=== PATIENT | female | born 1955 | race Caucasian/White ===

== ENCOUNTER 2017-05-16 12:52 | Outpatient (CLI) | payer BC ==
[2017-05-16 14:45] LABS: #Eosinphils 0.2 thou/uL (0.0-0.7); #Lymphocytes 1.8 thou/uL (1.20-3.40); #Monocytes 0.4 thou/uL (0.11-0.59); #Neutrophils 3.1 thou/uL (1.40-6.50); %Basophils 0.8 % (0.0-1.0); %Eosinophils 3.7 % (0.0-10.0); %Lymphocytes 33.4 % (21.0-51.0); %Monocytes 6.6 % (0.0-10.0); Mean Platelet Volume 7.4 fL (7.4-10.4); Red Blood Cell (RBC) Count 4.12 mill/uL (4.20-5.40); White Blood Cell (WBC) Count 5.5 thou/uL (4.8-10.8)
[2017-05-16 15:08] LABS: Anion Gap 9 mmol/L (10-20); BUN (Urea Nitrogen) 12 mg/dL (9.8-20.1); Calc. Creatinine Clearance 0 mL/min (70-130); Calcium 9.6 mg/dL (7.8-10.44); Carbon Dioxide 30 mmol/L (23-31); Chloride 104 mmol/L (98-107); Estimated GFR-MDRD 64
== END 2017-05-16 12:53 | disposition home or self-care (01) ==
LOC: LABBT 12:52
PROVIDERS: ATTEND Orthopaedic Surgery
DX: Z01.818 Encounter for other preprocedural examination (principal); M75.102 Unspecified rotator cuff tear or rupture of left shoulder, not specified as traumatic
CPT/HCPCS: 80048; 85025; 93005; 93010

== ENCOUNTER 2017-05-20 06:55 | Day surgery (SDC) | payer BC ==
[2017-05-16 13:20] VITALS: BMI 22.1
[2017-05-20] MEDS ORDERED: Levofloxacin 500 mg/D5W 100 ml Premix Bag ONE (07:33)
[2017-05-20] MEDS ORDERED: Clindamycin/D5W 900 mg/50 ml Premix Bag ONE (07:33)
[2017-05-20] MEDS ORDERED: Fentanyl 100 MCG/2 ML VIAL ONE ×2 (07:38→12:29)
[2017-05-20] MEDS ORDERED: Ropivacaine 0.2% HCl/PF 20 ML ONE (07:38)
[2017-05-20] MEDS ORDERED: Midazolam HCl 2 mg/2 ml Vial ONE (07:38)
[2017-05-20] MEDS ORDERED: Zolpidem Tartrate 5 MG TAB PO PRN (08:53)
[2017-05-20] MEDS ORDERED: Ondansetron HCl/PF 4 MG/2 ML Vial IVP PRN (08:53)
[2017-05-20] MEDS ORDERED: traMADol HCl 50 MG TAB PO PRN ×2 (08:53)
[2017-05-20] MEDS ORDERED: HYDROcodone/Acetaminophen 10/325 mg Tablet PO PRN ×2 (08:53)
[2017-05-20] MEDS ORDERED: Fentanyl 100 MCG/2 ML VIAL IV PRN (08:53)
[2017-05-20] MEDS ORDERED: Ropivacaine 0.2% 550 ML 550 ML NERVE BLCK SCH (08:53)
[2017-05-20] MEDS ORDERED: Promethazine HCl 25 MG/ML VIAL IM PRN (08:53)
[2017-05-20] MEDS ORDERED: Ondansetron HCl/PF 4 MG/2 ML Vial ONE ×2 (10:00→10:26)
[2017-05-20] MEDS ORDERED: Scopolamine 1.5 mg/72 hour Patch ONE (10:02)
[2017-05-20] MEDS ORDERED: Lidocaine 1% PF 5 ML VIAL ONE (10:26)
[2017-05-20] MEDS ORDERED: Dexamethasone 20 MG/5 ML VIAL ONE (10:26)
[2017-05-20] MEDS ORDERED: Propofol 200 MG/20 ML VIAL ONE (10:26)
[2017-05-20] MEDS ORDERED: Glycopyrrolate 0.2 MG/ML 5 ML SYRINGE ONE (10:26)
[2017-05-20] MEDS ORDERED: Lidocaine 1% w/Epinephrine 1:200K 30 ML VIAL ONE (10:39)
[2017-05-20] MEDS ORDERED: Promethazine HCl 25 MG/ML VIAL ONE (12:05)
--- NOTE | 2017-05-20 13:45 | OP ---
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 PROCEDURES PERFORMED: 1. Left shoulder arthroscopy with debridement and shaving of partial left- sided bursal rotator cuff tear, which was at most 10%of the rotator cuff thickness. 2. Open biceps tenodesis. SURGEON: Santiago Schwab M.D. INDUSTRIAL CONTROLLER: Wilbert Carlton PA-C. BLOOD LOSS: Minimal. COMPLICATIONS: None. ANESTHESIA: She had general anesthetic as well as a local block. DISPOSITION: She did go to recovery in stable condition. IMPLANTS: Her only implant was 7 x 23 BioComposite Bio-Tenodesis screw. INDICATIONS: Ms. Garcias is a 61-year-old female who has failed nonoperative treatment for persistent left shoulder problems. She has had multiple injections and physical therapy and continued to have problems and at this time , she opted for surgery. DESCRIPTION OF PROCEDURE: After all appropriate consent forms were explained and signed, she was taken to the operating room and at this time was given general anesthetic. Once the level of anesthesia was appropriate, she was rolled into the right lateral decubitus position with all bony prominences well- padded. Axillary roll was placed underneath the right axilla and the hong bag was inflated to hold her in this position. The arm was taken through full range of motion and was not found to be tied at all. The arm was then suspended with 5 pounds only. The left shoulder and upper extremity were then prepped and draped in the standard surgical fashion. Bony anatomic landmarks were drawn out and subacromial space was infiltrated with lidocaine with epinephrine. Posterior portal was established and the scope was placed into the shoulder joint. Anterior working portal was then made using a needle localization technique. Diagnostic arthroscopy commenced. The articular surface of the humeral head and glenoid were in good condition. No loose bodies were noted in the axillary pouch. Labrum was found to be intact except for the superior labrum which was found to have a chronic tear and the superior labrum was also found to be diminutive in size in a chronic appearance. The rotator cuff had a pristine appearance from the joint surface. Subscapularis and middle glenohumeral ligament were also within normal limits. At this time, we used an [address] a stitch through the biceps tendon and this tendon was then cut off the superior labrum using arthroscopic scissors. Once this was done, the scope was removed and replaced into the subacromial space. Lateral working portal was made and at this time, the bursa was removed, so we could visualize the underlying rotator cuff. The underlying rotator cuff was scuffed over the supraspinatus and even back towards the infraspinatus, but upon probing, it was not found to have any significant tears and a scuffed area was just gently debrided with the shaver to help promote healing. Again, all bursa was removed. No bony decompression was performed nor was the CA ligament taken down. At this time, the scope was removed, shoulder was drained. We then went to perform our open biceps tenodesis. From where our stick was, a 15 blade was used to cut down through skin, and the Bovie was used to coagulate any brisk venous bleeding. The deltoid fascia was entered sharply and finger dissection was used to dissect down through the deltoid muscle fibers to get down to the underlying transverse humeral ligament. This was opened up and the biceps was pulled out into the wound. We then coagulated any brisk venous bleeding. We then sutured our biceps tendon, cut off the intraarticular portion of this, placed a pin, reamed over top with a 7 mm reamer to a depth of 25 and placed our 7 x 23 BioComposite Bio-Tenodesis screw in standard fashion. Sutures were tied over top of that, so that I could not back out and at this time, we thoroughly irrigated our wound. We dried it. We allowed our deltoid to fall upon itself. We used a running Vicryl to close the deltoid fascia, 2-0 Vicryl and nylon stitches to close skin in the portals. Bulky sterile dressing was applied. The patient was awakened and taken to recovery in stable condition. All counts were correct at the end of the case. She received preoperative IV antibiotics. HOLA
== END 2017-05-20 14:43 | disposition home or self-care (01) ==
LOC: SDC 06:55
PROVIDERS: ATTEND Orthopaedic Surgery
PROC: 0RHK04Z Insertion of Internal Fixation Device into Left Shoulder Joint, Open Approach (ICD-10-PCS; principal; 2017-05-20)
PROC: 0LS40ZZ Reposition Left Upper Arm Tendon, Open Approach (ICD-10-PCS; principal; 2017-05-20)
PROC: 0RBK4ZZ Excision of Left Shoulder Joint, Percutaneous Endoscopic Approach (ICD-10-PCS; principal; 2017-05-20)
DX: M75.112 Incomplete rotator cuff tear or rupture of left shoulder, not specified as traumatic (principal); S43.432A Superior glenoid labrum lesion of left shoulder, initial encounter; S46.112A Strain of muscle, fascia and tendon of long head of biceps, left arm, initial encounter; G47.00 Insomnia, unspecified; J30.9 Allergic rhinitis, unspecified; E03.9 Hypothyroidism, unspecified; F41.9 Anxiety disorder, unspecified; M85.80 Other specified disorders of bone density and structure, unspecified site; Z79.51 Long term (current) use of inhaled steroids; Z79.52 Long term (current) use of systemic steroids; Z79.899 Other long term (current) drug therapy; Z88.5 Allergy status to narcotic agent; Z88.0 Allergy status to penicillin; Z88.7 Allergy status to serum and vaccine; Z91.048 Other nonmedicinal substance allergy status; Z98.41 Cataract extraction status, right eye; Z90.89 Acquired absence of other organs; Z90.49 Acquired absence of other specified parts of digestive tract; Z98.890 Other specified postprocedural states; Z86.19 Personal history of other infectious and parasitic diseases; Z80.42 Family history of malignant neoplasm of prostate; Z82.62 Family history of osteoporosis
CPT/HCPCS: 96374; A4306; C1713; J1100; J1956; J2001; J2250; J2405; J2550; J2704; J2795; J3010; J3490

== ENCOUNTER 2018-01-22 08:54 | Outpatient (CLI) | payer BC | END 2018-01-22 08:55 | disposition home or self-care (01) | LOC: BICMAMMO 08:54 | PROVIDERS: ATTEND Family Medicine | DX: Z12.31 Encounter for screening mammogram for malignant neoplasm of breast (principal) | CPT/HCPCS: 77063; 77067 ==

== ENCOUNTER 2018-04-16 07:43 | Outpatient (CLI) | payer BC ==
--- NOTE | 2018-04-16 09:40 | ULT ---
HEPATIC ULTRASOUND WITH HEPATIC DOPPLER EVALUATION WITH SPECTRAL ANALYSIS AND COLOR FLOW: DATE: 04/16/18. HISTORY: Increased bilirubin. FINDINGS: The gallbladder is not visualized consistent with patient's reported history of cholecystectomy. Th e common duct measures 0.7 cm in diameter, which is within normal limits for post cholecystectomy matheus nges. The limited visualized portions of the pancreas, visualized portions of the IVC, liver, and spleen de monstrate a normal sonographic appearance. HEPATIC DOPPLER EVALUATION WITH SPECTRAL ANALYSIS AND COLOR FLOW: There is normal directional flow demonstrated within the portal, hepatic, and splenic veins demonstra te normal directional flow. There are also arterial waveforms demonstrated within the splenic and he patic arteries. IMPRESSION: 1. Post cholecystectomy changes. The common duct is mildly dilated, but there is no evidence of int rahepatic biliary ductal dilatation. 2. Normal directional flow is seen within the portal, hepatic, and splenic veins. POS: [facility]
== END 2018-04-16 07:44 | disposition home or self-care (01) ==
LOC: SCSULT 07:43
PROVIDERS: ATTEND Internal Medicine Gastroenterology
DX: R94.5 Abnormal results of liver function studies (principal); K52.9 Noninfective gastroenteritis and colitis, unspecified; K83.8 Other specified diseases of biliary tract; Z90.49 Acquired absence of other specified parts of digestive tract
CPT/HCPCS: 76705

== ENCOUNTER 2019-01-30 13:22 | Outpatient (CLI) | payer BC ==
--- NOTE | 2019-01-30 14:05 | BD ---
EXAM: DEXA bone density examination HISTORY: 63-year-old postmenopausal female for screening COMPARISON: None FINDINGS: L1--bone mineral density 0.809 g/sq cm; T score -1.6 L2--bone mineral density 0.859 g/sq cm; T score -1.5 L3--bone mineral density 0.881 g/sq cm; T score -1.8 L4--bone mineral density 0.833 g/sq cm; T score -2.1 Total L1-L4--bone mineral density 0.846 g/sq cm; T score -1.8 Left femoral neck--bone mineral density0.740; T score -1.0 Total proximal left femur--bone mineral density 0.813; T score -1.1 IMPRESSION: Osteopenia. This patient has a 10 year WHO fracture risk of a major osteoporotic fracture of 15% and of a hip fracture of 0.6%.
--- NOTE | 2019-01-30 15:25 | MMO ---
Bilateral MAMMO Bilat Screen [facility]. CLINICAL HISTORY: Patient is 63 years old and is seen for screening. The patient has no family history of breast cancer. The patient has no personal history of cancer. The patient has a history of right Cyst Aspiration at age 35 - benign. VIEWS: The views performed were: bilateral craniocaudal with tomosynthesis and bilateral mediolateral oblique with tomosynthesis. FILMS COMPARED: The present examination has been compared to prior imaging studies performed at [facility] on 01/10/2015, 01/16/2016, 01/21/2017 and 01/22/2018. MAMMOGRAM FINDINGS: The breasts are heterogeneously dense, which could obscure a lesion on mammography. There are no suspicious masses, suspicious calcifications, or new areas of architectural distortion. IMPRESSION: THERE IS NO MAMMOGRAPHIC EVIDENCE OF MALIGNANCY. A ROUTINE FOLLOW-UP MAMMOGRAM IN 1 YEAR IS RECOMMENDED. THE RESULTS OF THIS EXAM WERE SENT TO THE PATIENT. ACR BI-RADS Category 1 - Negative MAMMOGRAPHY NOTE: 1. A negative mammogram report should not delay a biopsy if a dominant of clinically suspicious mass is present. 2. Approximately 10% to 15% of breast cancers are not detected by mammography. 3. Adenosis and dense breasts may obscure an underlying neoplasm.
== END 2019-01-30 13:23 | disposition home or self-care (01) ==
LOC: BICMAMMO 13:22
PROVIDERS: ATTEND Family Medicine
DX: Z12.31 Encounter for screening mammogram for malignant neoplasm of breast (principal); Z13.820 Encounter for screening for osteoporosis; M85.89 Other specified disorders of bone density and structure, multiple sites
CPT/HCPCS: 77063; 77067; 77080

== ENCOUNTER 2020-02-22 10:41 | Outpatient (CLI) | payer MEDICARE ==
--- NOTE | 2020-02-22 11:51 | MMO ---
Bilateral MAMMO Bilat Screen [facility]. CLINICAL HISTORY: Patient is 64 years old and is seen for screening. The patient has no family history of breast cancer. The patient has no personal history of cancer. The patient has a history of right Cyst Aspiration at age 35 - benign. VIEWS: The views performed were: bilateral craniocaudal with tomosynthesis; bilateral mediolateral oblique with tomosynthesis; and bilateral exaggerated craniocaudal. FILMS COMPARED: The present examination has been compared to prior imaging studies performed at [facility] on 01/16/2016, 01/21/2017, 01/22/2018 and 01/30/2019. This study has been interpreted with the assistance of computer-aided detection. MAMMOGRAM FINDINGS: The breasts are heterogeneously dense, which could obscure a lesion on mammography. There are no suspicious masses, suspicious calcifications, or new areas of architectural distortion. IMPRESSION: THERE IS NO MAMMOGRAPHIC EVIDENCE OF MALIGNANCY. A ROUTINE FOLLOW-UP MAMMOGRAM IN 1 YEAR IS RECOMMENDED. THE RESULTS OF THIS EXAM WERE SENT TO THE PATIENT. ACR BI-RADS Category 1 - Negative MAMMOGRAPHY NOTE: 1. A negative mammogram report should not delay a biopsy if a dominant of clinically suspicious mass is present. 2. Approximately 10% to 15% of breast cancers are not detected by mammography. 3. Adenosis and dense breasts may obscure an underlying neoplasm. Reported by: NIDIA GERMAIN MD Electonically Signed: [id number]
== END 2020-02-22 10:42 | disposition home or self-care (01) ==
LOC: BICMAMMO 10:41
PROVIDERS: ATTEND Physician Assistant Medical
DX: Z12.31 Encounter for screening mammogram for malignant neoplasm of breast (principal); Z91.89 Other specified personal risk factors, not elsewhere classified
CPT/HCPCS: 77063; 77067

== ENCOUNTER 2022-05-02 13:11 | Outpatient (CLI) | payer MEDICARE | END 2022-05-02 13:12 | disposition home or self-care (01) | LOC: BICMAMMO 13:11 | PROVIDERS: ATTEND Student in an Organized Health Care Education/Training Program | DX: Z12.31 Encounter for screening mammogram for malignant neoplasm of breast (principal); Z13.820 Encounter for screening for osteoporosis; M81.0 Age-related osteoporosis without current pathological fracture; M85.852 Other specified disorders of bone density and structure, left thigh; Z78.0 Asymptomatic menopausal state | CPT/HCPCS: 77063; 77067; 77080 ==

== ENCOUNTER 2023-05-08 13:29 | Outpatient (CLI) | payer MEDICARE | END 2023-05-08 13:30 | disposition home or self-care (01) | LOC: BICMAMMO 13:29 | PROVIDERS: ATTEND Student in an Organized Health Care Education/Training Program | DX: Z12.31 Encounter for screening mammogram for malignant neoplasm of breast (principal); Z91.89 Other specified personal risk factors, not elsewhere classified | CPT/HCPCS: 77063; 77067 ==

== ENCOUNTER 2024-06-18 12:22 | Outpatient (CLI) | payer MEDICARE | END 2024-06-18 12:23 | disposition home or self-care (01) | LOC: BICMAMMO 12:22 | PROVIDERS: ATTEND Student in an Organized Health Care Education/Training Program | DX: Z12.31 Encounter for screening mammogram for malignant neoplasm of breast (principal); Z78.0 Asymptomatic menopausal state; M85.89 Other specified disorders of bone density and structure, multiple sites | CPT/HCPCS: 77063; 77067; 77080 ==

== ENCOUNTER 2025-06-24 11:29 | Outpatient (CLI) | payer MEDICARE | END 2025-06-24 11:30 | disposition home or self-care (01) | LOC: BICMAMMO 11:29 | PROVIDERS: ATTEND Student in an Organized Health Care Education/Training Program | DX: Z12.31 Encounter for screening mammogram for malignant neoplasm of breast (principal) | CPT/HCPCS: 77063; 77067 ==